=== PATIENT | female | born 1940 | race Caucasian/White ===

== ENCOUNTER 2020-03-29 05:28 | Inpatient (IN) | payer MEDICARE, BC ==
[2020-03-01 11:29] LABS: ABSOLUTE EOSINOPHILS # (AUTO) 0.1 10^3/uL (0.0-0.6); ABSOLUTE LYMPHOCYTES (AUTO) 1.6 10^3/uL (0.5-4.7); ABSOLUTE MONOCYTES (AUTO) 0.4 10^3/uL (0.1-1.4); ABSOLUTE NEUT (AUTO) 3.7 10^3/uL (1.7-8.2); BASOPHILS % (AUTO) 0.6 % (0-2); EOSINOPHILS % (AUTO) 2.4 % (0-6); HEMATOCRIT 40.6 % (36.0-47.0); HEMOGLOBIN 13.4 g/dL (12.0-15.5); LYMPHOCYTES % (AUTO) 27.2 % (13-45); MEAN CORPUSCULAR HEMOGLOBIN 29.7 pg (27.0-33.4); MEAN CORPUSCULAR VOLUME 90 fl (80-97); MONOCYTES % (AUTO) 7.2 % (3-13); PLATELET COUNT 153 10^3/uL (150-450); RED BLOOD COUNT 4.51 10^6/uL (3.72-5.28); RED CELL DISTRIBUTION WIDTH 14.4 % (11.5-14.0); SEGMENTED NEUTROPHILS % (AUTO) 62.6 % (42-78); TOTAL CELLS COUNTED % (AUTO) 100 %; WHITE BLOOD COUNT 5.9 10^3/uL (4.0-10.5)
[2020-03-01 11:45] LABS: APPEARANCE,URINE CLEAR; BILIRUBIN,URINE NEGATIVE (NEGATIVE); COLOR,URINE YELLOW; GLUCOSE, URINE NEGATIVE (NEGATIVE); KETONES,URINE NEGATIVE (NEGATIVE); LEUKOCYTE ESTERASE,URINE TRACE (NEGATIVE); NITRITE,URINE NEGATIVE (NEGATIVE); PROTEIN,URINE NEGATIVE (NEGATIVE); URINE SPECIFIC GRAVITY 1.012; UROBILINOGEN,URINE NEGATIVE mg/dL (<2.0)
--- NOTE | 2020-03-01 11:48 | RADIOLOGY REPORT (SQ) ---
EXAM DESCRIPTION: CHEST 2 VIEWS IMAGES COMPLETED DATE/TIME: 03/01/2020 11:38 am REASON FOR STUDY: PRE OP TESTING COMPARISON: None. EXAM PARAMETERS: NUMBER OF VIEWS: two views TECHNIQUE: Digital Frontal and Lateral radiographic views of the chest acquired. RADIATION DOSE: NA LIMITATIONS: none FINDINGS: LUNGS AND PLEURA: No opacities, masses or pneumothorax. No pleural effusion. MEDIASTINUM AND HILAR STRUCTURES: No masses or contour abnormalities. HEART AND VASCULAR STRUCTURES: Heart normal size. No evidence for failure. BONES: No acute findings. HARDWARE: None in the chest. OTHER: No other significant finding. IMPRESSION: NO ACUTE RADIOGRAPHIC FINDING IN THE CHEST. TECHNICAL DOCUMENTATION: JOB ID: [id number] 2010 [employer]- All Rights Reserved Reading location - IP/workstation name: [email or web address]
[2020-03-01 11:53] LABS: ANION GAP 10 (5-19); BLOOD UREA NITROGEN 18 mg/dL (7-20); CALCIUM 9.4 mg/dL (8.4-10.2); CARBON DIOXIDE 27 mmol/L (22-30); CHLORIDE 104 mmol/L (98-107); GLUCOSE 107 mg/dL (75-110)
[2020-03-01 12:01] LABS: ALCOHOL < 10 mg/dL (NONE DETECTED)
[2020-03-01 12:06] LABS: URINE AMPHETAMINES SCREEN NEGATIVE; URINE BARBITURATES SCREEN NEGATIVE; URINE BENZODIAZEPINES SCREEN NEGATIVE; URINE COCAINE SCREEN NEGATIVE; URINE MARIJUANA (THC) SCREEN NEGATIVE; URINE METHADONE SCREEN NEGATIVE; URINE PHENCYCLIDINE SCREEN NEGATIVE
--- NOTE | 2020-03-01 15:24 | EKG REPORT ---
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
[~2020-03-29 05:28] MED LIST: CEFAZOLIN 2 GM/D5W RTU 2 GM/50 ML RTUPB IV PRN; LACTATED RINGERS 1000 ML IV PRN; LIDOCAINE 0.5% INJ-PF (5 MG/ML) 50 ML SDV SUBCUT PRN
[2020-03-29] MEDS ORDERED: CEFAZOLIN 2 GM/D5W RTU 2 GM/50 ML RTUPB IV ONE (05:39)
[2020-03-29 06:24] LABS: POTASSIUM 4.1 mmol/L (3.6-5.0)
[2020-03-29] MEDS ORDERED: LIDOCAINE 2% INJ (20 MG/ML) 20 ML MDV ONE (06:47)
[2020-03-29] MEDS ORDERED: FENTANYL CITRATE INJ/PF 250 MCG/5 ML AMPULE ONE (06:49)
[2020-03-29] MEDS ORDERED: KETAMINE HCL INJ 500 MG/10 ML VIAL ONE (06:49)
[2020-03-29] MEDS ORDERED: PROPOFOL INJ 200 MG/20 ML VIAL IV ONE ×3 (06:50→11:48)
[2020-03-29] MEDS ORDERED: MIDAZOLAM 2 MG/2 ML INJ ONE (06:50)
[2020-03-29] MEDS ORDERED: ONDANSETRON HCL INJ/PF 4 MG/2 ML SDV ONE ×2 (06:50→16:20)
[2020-03-29] MEDS ORDERED: DEXAMETHASONE SOD PHOSPHATE INJ 4 MG/1 ML VIAL ONE (06:50)
[2020-03-29] MEDS ORDERED: DIPHENHYDRAMINE HCL 25 MG CAPSULE PO PRN (07:01)
[2020-03-29] MEDS ORDERED: ACETAMINOPHEN 325 MG TABLET PO PRN (07:01)
[2020-03-29] MEDS ORDERED: MAGNESIUM HYDROXIDE SUSP 30 ML UDCUP PO PRN (07:01)
[2020-03-29] MEDS ORDERED: DIPHENHYDRAMINE HCL 50 MG/ML VIAL IV PRN ×2 (07:01→08:33)
[2020-03-29] MEDS ORDERED: DIAZEPAM 5 MG TABLET PO PRN (07:01)
[2020-03-29] MEDS ORDERED: METHOCARBAMOL 750 MG TABLET PO PRN (07:01)
[2020-03-29] MEDS ORDERED: RINGERS SOLUTION,LACTATED 1,000 ML IV PRN (07:01)
[2020-03-29] MEDS ORDERED: BUPIVACAINE HCL 0.5 % INJ/PF 30 ML SDV ONE (07:04)
[2020-03-29] MEDS ORDERED: HEPARIN SOD (PORCINE) 1,000 UNIT/ML 10 ML VIAL ONE (07:04)
[2020-03-29] MEDS ORDERED: BUPIVACAINE INJ/PF LIPOSOME/PF 266 MG/20 ML SDV ONE (07:05)
[2020-03-29] MEDS ORDERED: MINERAL OIL (STERILE) 10 ML VIAL ONE ×2 (07:05→09:40)
[2020-03-29] MEDS ORDERED: BACITRACIN INJ 50,000 UNIT VIAL ONE (07:05)
[2020-03-29] MEDS ORDERED: EPHEDRINE SULFATE INJ 50 MG/1 ML AMPULE ONE (07:15)
[2020-03-29] MEDS ORDERED: CHLORDIAZEPOXIDE HCL 10 MG PO PRN (07:19)
[2020-03-29] MEDS ORDERED: TRAMADOL HCL 50 MG TABLET PO PRN (07:19)
[2020-03-29] MEDS ORDERED: LANSOPRAZOLE 30 MG PO SCH (07:30)
[2020-03-29] MEDS ORDERED: MORPHINE SULFATE 10 MG/ML INJ IV PRN (08:33)
[2020-03-29] MEDS ORDERED: PROMETHAZINE HCL INJ 25 MG/1 ML VIAL IV PRN ×2 (08:33→16:17)
[2020-03-29] MEDS ORDERED: FENTANYL CITRATE INJ/PF 100 MCG/2 ML AMPUL IV PRN ×3 (08:33)
[2020-03-29] MEDS ORDERED: MECOBALAMIN 1000 MCG PO SCH (10:00)
[2020-03-29] MEDS ORDERED: (PENDING PHARMACY ID) (Metformin Hcl [Metformin Hcl Er] 500 MG Tab.Er.24h) PO SCH (10:00)
[2020-03-29] MEDS ORDERED: PYRIDOXINE HCL 100 MG PO SCH (10:00)
[2020-03-29] MEDS ORDERED: LEVOTHYROXINE SODIUM 125 MCG PO SCH (10:00)
[2020-03-29] MEDS ORDERED: MAGNESIUM OXIDE 400 MG PO SCH (10:00)
[2020-03-29] MEDS ORDERED: TRIAMTERENE 50 MG PO SCH (10:00)
[2020-03-29] MEDS ORDERED: CEFAZOLIN INJ 1 GM VIAL ONE (11:36)
[2020-03-29] MEDS ORDERED: METHOCARBAMOL INJ/PF 1000 MG/10 ML SDV ONE (12:15)
--- NOTE | 2020-03-29 12:38 | Operative Report ---
Operative Report DATE OF SURGERY: 03/29/20 PREOPERATIVE DIAGNOSIS: L3-4 and L4-5 and L5-S1 spondylolisthesis. L3-4 L4-5 a nd L5-S1 instability. L3-4 L4-5 and L5-S1 stenosis and degenerative disc disease and back pain and radiculitis POSTOPERATIVE DIAGNOSIS: L3-4 and L4-5 and L5-S1 spondylolisthesis. L3-4 L4-5 and L5-S1 instability. L3-4 L4-5 and L5-S1 stenosis and degenerative disc disease and back pain and radiculitis. Status post L3-4 and L4-5 and L5-S1 anterior lateral interbody fusion with interbody spacers as well as L3-4 and L4- 5 and L5-S1 posterior fusion and instrumentation robotically assisted left-sided iliac crest aspiration through a separate incision. OPERATION: L3-4 and L4-5 and L5-S1 anterior lateral interbody fusion with interbody spacers as well as L3-4 and L4-5 and L5-S1 posterior fusion and instrumentation robotically assisted left-sided iliac crest aspiration through a separate incision. SURGEON: KAREN BAPTISTE 1ST INDUSTRIAL HYGIENE ENGINEER: DIOMEDES DAMIAN ANESTHESIA: GA TISSUE REMOVED OR ALTERED: Where utilized is [employer] screws at L3 4.5 x 45 mm screws x2 at L4 5.5 x 45 mm screws x2 at L5 6.5 x 40 mm screws x2 at S1 6.5 x 40 mm screws x2 100 mm davion on the left and 90 mm davion on the right as well as spineology 20 mm spacer at L5-S1 22 mm spacers at L3-4 and L4-5 with with DBM cortical cancellous mix of allograft with the bone marrow aspirate and interbody spacers COMPLICATIONS: None ESTIMATED BLOOD LOSS: 250 cc blood loss but also patient is given back 150 cc of Cell Saver PROCEDURE: Patient is brought into the room placed under general anesthesia received 2 g of Ancef within 1 hour of cut time was placed on the Brayan table medial epicon dyles and axillary areas are well-padded. Neuro monitoring leads for SSEP and cranial motor testing are placed on the patient as well as a Harp catheter is placed preoperatively. After appropriate surgical timeout the [employer] robot is utilized and on the right posterior superior iliac spine a pin is placed and attached to the robot. After obtaining registration imaging in the AP and oblique position and verification. The appropriate length screws are inserted using portal incisions on the right and the left at L3 and L4 and L5 and S1 bilaterally. Left iliac crest is aspirated at 2 different sites total of 50 cc of bone marrow aspirate are obtained and concentrated to be used an interbody spacer with the allograft. Attention was then paid to the left sided anterior lateral portal for entry into the disc space which is carried out under navigation guidance upon verification also with x-rays and then stimulation thresholds greater than 35 mA. Upon inserting the portal into the disc space at L3-4 and L4-5 and L5-S1 fluoroscopy was used to verify the position as it did also to verify the screws position. Endplate radha and curettes and brushes are used to carry out a complete discectomy then the verify balloon is inserted to verify good contact with the endplates. Incite cortical fibers/demineralized bone matrix with bone marrow aspirate concentrate are placed anterior in the disc space then the appropriate size mesh spacer is introduced into the interbody. The mesh spacer is soaked in bone marrow aspirate concentrate and is filled with bone graft showing good correction and good containment within the disc space at L3-4 and L4-5 and L5- S1. Upon neuro monitoring testing and cranial motor testing found to be stable then the portal is removed anterior laterally and attention is then paid to the placement of the rods upon using the caliper device the appropriate length rods were determined to be 40 mm rods on the right and on the left those are passed d own and locked into position and final tightened. Then the tabs are removed and the portals are irrigated with copious amounts of irrigation and the posterior superior iliac spine pin connected to the robot is removed as well and the deep and superficial tissues were infiltrated with 1.3% Exparel 20 cc mixed with 20 cc of 0.5% bupivacaine plain. The portals are closed using 2-0 Vicryl and then Dermabond and Steri-Strips then 4 x 4's were used to cover the wounds on the right and the left and dressed with coverall tape. Please note that this procedure could not be done without the assistance of Shyam Quiñonez working to assist with the placement of the screws positioning of the robot carrying out the aspiration through the left side iliac crest aspiration please also note that the iliac crest aspiration is carried out on the left side through a separate incision. Shyam Damian was instrumental throughout this whole process and I could not have done this procedure without his assistance as mentioned above.
[2020-03-29] MEDS ORDERED: MORPHINE SULFATE 10 MG/ML INJ ONE (12:44)
[2020-03-29] MEDS: MORPHINE SULFATE 10 MG/ML INJ IV PRN ×3 (12:46→20:40)
[2020-03-29] MEDS ORDERED: CEFAZOLIN 2 GM/D5W RTU 2 GM/50 ML RTUPB IV SCH (14:00)
[2020-03-29] MEDS: LOSARTAN POTASSIUM 50 MG TABLET PO SCH (15:17)
[2020-03-29] MEDS: ESTROGENS,CONJUGATED 0.3 MG TABLET PO SCH (15:17)
[2020-03-29] MEDS: FAMOTIDINE 20 MG TABLET PO SCH ×2 (15:17→17:07)
[2020-03-29] MEDS: SENNOSIDES/DOCUSATE 8.6-50 MG 1 EACH TABLET PO SCH ×2 (15:32→17:07)
[2020-03-29] MEDS: METOPROLOL SUCCINATE 25 MG TAB.SR.24H PO SCH (15:32)
[2020-03-29] MEDS: SIMVASTATIN 40 MG TABLET PO SCH (15:32)
[2020-03-29] MEDS: ASPIRIN 81 MG TABLET, ENT COATED PO SCH (15:32)
--- NOTE | 2020-03-29 16:09 | RADIOLOGY REPORT (SQ) ---
EXAM DESCRIPTION: L SPINE 2 VIEWS; NO CHG FLUORO IMAGES COMPLETED DATE/TIME: 03/29/2020 3:25 pm REASON FOR STUDY: LUMBAR FUSION MULTIPLE LEVELS ASSISTED WITH FLUORO IN OR M43.10 SPONDYLOLISTHESIS , SITE UNSPECIFIED M48.061 SPINAL STENOSIS, LUMBAR REGION WITHOUT NEUROGENIC CL M51.36 OTHER INTERV ERTEBRAL DISC DEGENERATION, LUMBAR REGION COMPARISON: None. FLUOROSCOPY TIME: 4 minutes 5 images saved to PACS. TECHNIQUE: Intra-operative images acquired during surgical procedure to evaluate progress. NUMBER OF IMAGES: 5 LIMITATIONS: None. FINDINGS: Images from fluoro document placement of posterior rods from L3-S1 with screws through the pedicles. IMPRESSION: Multilevel lumbar fusion. Refer to operative note for further information. COMMENT: Quality ID [id number]: Final reports for procedures using fluoroscopy that document radiation exp osure indices, or exposure time and number of fluorographic images (if radiation exposure indices are not available) Please consult full operative report of the attending physician for description of the procedure. TECHNICAL DOCUMENTATION: JOB ID: [id number] 2010 [employer]- All Rights Reserved Reading location - IP/workstation name: [email or web address]
--- NOTE | 2020-03-29 16:09 | RADIOLOGY REPORT (SQ) ---
EXAM DESCRIPTION: L SPINE 2 VIEWS; NO CHG FLUORO IMAGES COMPLETED DATE/TIME: 03/29/2020 3:25 pm REASON FOR STUDY: LUMBAR FUSION MULTIPLE LEVELS ASSISTED WITH FLUORO IN OR M43.10 SPONDYLOLISTHESIS , SITE UNSPECIFIED M48.061 SPINAL STENOSIS, LUMBAR REGION WITHOUT NEUROGENIC CL M51.36 OTHER INTERV ERTEBRAL DISC DEGENERATION, LUMBAR REGION COMPARISON: None. FLUOROSCOPY TIME: 4 minutes 5 images saved to PACS. TECHNIQUE: Intra-operative images acquired during surgical procedure to evaluate progress. NUMBER OF IMAGES: 5 LIMITATIONS: None. FINDINGS: Images from fluoro document placement of posterior rods from L3-S1 with screws through the pedicles. IMPRESSION: Multilevel lumbar fusion. Refer to operative note for further information. COMMENT: Quality ID 145: Final reports for procedures using fluoroscopy that document radiation exp osure indices, or exposure time and number of fluorographic images (if radiation exposure indices are not available) Please consult full operative report of the attending physician for description of the procedure. TECHNICAL DOCUMENTATION: JOB ID: [id number] 2010 [employer]- All Rights Reserved Reading location - IP/workstation name: [email or web address]
[2020-03-29] MEDS ORDERED: ONDANSETRON 4 MG TAB.RAPDIS PO PRN (16:16)
[2020-03-29] MEDS ORDERED: ONDANSETRON HCL INJ/PF 4 MG/2 ML SDV IV PRN (16:16)
[2020-03-29] MEDS: METFORMIN HCL 500 MG TABLET PO SCH ×3 (17:07→18:31)
[2020-03-29] MEDS: NYSTATIN TOPICAL POWDER 15 GM TP SCH (17:07)
[2020-03-29] MEDS: OXYCODONE HCL IR 5 MG TABLET PO PRN ×2 (18:31→22:35)
[2020-03-29] MEDS: CEFAZOLIN SODIUM 2 GM in DEXTROSE 5%-WATER 100 ML IV SCH (21:58)
[2020-03-29] MEDS ORDERED: PANTOPRAZOLE SODIUM 40 MG TABLET.DR PO PRN (22:00)
[2020-03-30] MEDS: MORPHINE SULFATE 10 MG/ML INJ IV PRN (04:39)
[2020-03-30] MEDS: LEVOTHYROXINE SODIUM 0.112 MG TABLET PO SCH (05:58)
[2020-03-30] MEDS: CEFAZOLIN SODIUM 2 GM in DEXTROSE 5%-WATER 100 ML IV SCH (05:58)
[2020-03-30] MEDS ORDERED: ACETAMINOPHEN 325 MG TABLET PO ONE (06:00)
[2020-03-30 06:12] LABS: HEMATOCRIT 35.7 % (36.0-47.0); HEMOGLOBIN 11.9 g/dL (12.0-15.5); MEAN CORPUSCULAR HEMOGLOBIN 29.7 pg (27.0-33.4); MEAN CORPUSCULAR HGB CONC 33.4 g/dL (32.0-36.0); MEAN CORPUSCULAR VOLUME 89 fl (80-97); PLATELET COUNT 119 10^3/uL (150-450); RED BLOOD COUNT 4.02 10^6/uL (3.72-5.28); RED CELL DISTRIBUTION WIDTH 14.8 % (11.5-14.0); WHITE BLOOD COUNT 9.6 10^3/uL (4.0-10.5)
[2020-03-30] MEDS: SENNOSIDES/DOCUSATE 8.6-50 MG 1 EACH TABLET PO SCH ×2 (09:18→17:03)
[2020-03-30] MEDS: FAMOTIDINE 20 MG TABLET PO SCH ×2 (09:19→17:04)
[2020-03-30] MEDS: MAGNESIUM OXIDE 400 MG TABLET PO SCH (09:19)
[2020-03-30] MEDS: METFORMIN HCL 500 MG TABLET PO SCH ×2 (09:19→17:04)
[2020-03-30] MEDS: OXYCODONE HCL IR 5 MG TABLET PO PRN ×3 (09:21→21:25)
[2020-03-30] MEDS: ASPIRIN 81 MG TABLET, ENT COATED PO SCH (09:21)
[2020-03-30] MEDS: LOSARTAN POTASSIUM 50 MG TABLET PO SCH (09:24)
[2020-03-30] MEDS: TRIAMTERENE/HYDROCHLOROTHIAZID 75-50 MG TABLET PO SCH (09:24)
[2020-03-30] MEDS: NYSTATIN TOPICAL POWDER 15 GM TP SCH ×2 (09:24→17:04)
[2020-03-30] MEDS: METOPROLOL SUCCINATE 25 MG TAB.SR.24H PO SCH (09:25)
[2020-03-30] MEDS: ESTROGENS,CONJUGATED 0.3 MG TABLET PO SCH (09:25)
[2020-03-30] MEDS: SIMVASTATIN 40 MG TABLET PO SCH (09:25)
[2020-03-30] MEDS ORDERED: CYANOCOBALAMIN (VITAMIN B-12) 1,000 MCG TABLET PO SCH ×2 (10:00→22:00)
[2020-03-30] MEDS ORDERED: PYRIDOXINE HCL 50 MG TABLET PO SCH ×2 (10:00→22:00)
[2020-03-30] MEDS: ACETAMINOPHEN 325 MG TABLET PO PRN (11:32)
[2020-03-30] MEDS ORDERED: SIMVASTATIN 40 MG TABLET PO SCH (22:00)
[2020-03-30] MEDS ORDERED: ESTROGENS,CONJUGATED 0.3 MG TABLET PO SCH (22:00)
[2020-03-31] MEDS: OXYCODONE HCL IR 5 MG TABLET PO PRN (04:28)
[2020-03-31] MEDS ORDERED: BISACODYL 5 MG TABEC PO PRN (05:00)
[2020-03-31] MEDS ORDERED: BISACODYL 10 MG SUPP.RECT PR PRN (05:00)
[2020-03-31] MEDS: LEVOTHYROXINE SODIUM 0.112 MG TABLET PO SCH (05:03)
[2020-03-31] MEDS: ACETAMINOPHEN 325 MG TABLET PO PRN (05:03)
[2020-03-31] MEDS: METFORMIN HCL 500 MG TABLET PO SCH (07:48)
--- NOTE | 2020-03-31 07:59 | PDOC PROGRESS REPORT ---
Subjective Date:: 03/30/20 Subjective:: Patient is laying in bed at time of exam, She reports significant pain, but reports that it is manageable. She is eating and drink and still has a catheter in place. Reason For Visit: M43.10 SPONDYLOLISTHESIS, SITE UNSPECIFIED,M48.061 Physical Exam Vital Signs: Temp Pulse Resp BP Pulse Ox 98.5 F 86 16 112/39 L 95 03/31/20 06:03 03/30/20 23:39 03/30/20 23:39 03/30/20 23:39 03/30/20 23:39 Intake & Output 03/30/20 03/31/20 04/01/20 06:59 06:59 06:59 Intake Total 2451 1595 Output Total 1830 1130 Balance 621 465 Weight 92.1 kg 92.1 kg General appearance: PRESENT: cooperative, mild distress Mouth exam: PRESENT: moist Respiratory exam: PRESENT: unlabored. ABSENT: chest wall tenderness, crackles, rhonchi, stridor Extremities exam: ABSENT: calf tenderness, pedal edema Musculoskeletal exam: PRESENT: tenderness - lumbar spine Additional comments: Dressing is intact and clean. Normal post op swelling and tenderness. Neurological exam: PRESENT: alert, altered, awake Psychiatric exam: ABSENT: agitated, anxious Results Laboratory Results: 03/30/20 05:13 03/29/20 05:47 Impressions: Chest X-Ray 03/01/20 00:00 IMPRESSION: NO ACUTE RADIOGRAPHIC FINDING IN THE CHEST. Fluoroscopy 03/29/20 00:00 IMPRESSION: Multilevel lumbar fusion. Refer to operative note for further information. Lumbar Spine X-Ray 03/29/20 00:00 IMPRESSION: Multilevel lumbar fusion. Refer to operative note for further information. Assessment & Plan - Time Time Spent with patient: Less than 15 minutes - Plan Summary Plan Summary: POD 1 S/P lumbar fusion Catheter to be removed today Progress with PT as tolerated keep dressing intact May D/C when cleared by PT
--- NOTE | 2020-03-31 08:55 | PDOC DISCHARGE SUMMARY ---
General - Admit/Disc Date/PCP Admission Date/Primary Care Provider: 03/29/20 07:02 HANS GONCALVES MD Discharge Date: 03/31/20 - Discharge Diagnosis Final Diagnosis: L3-4 L4-5 L5-S1 spondylolisthesis and instability status post L3-4 L4-5 L5-S1 fusion instrumentation - Assessment Summary: Patient is doing well her dressing is intact she denies any numbness or tingling in lower extremity she does have back pain progressing well with physical therapy will be discharged home to follow-up in the office in 10 to 14 days. - Additional Information Resuscitation Status: Full Code Discharge Diet: As Tolerated Discharge Activity: Balance Activity w/Rest, No Driving, No Lifting/Push/Pulling Referrals: KAREN BAPTISTE MD [ASSOCIATE] - 04/11/20 1:30 pm (AT [facility]) Home Medications: Alendronate Sodium 70 mg PO SA@1000 PRN 03/01/20 Aspirin [Aspir-Low] 81 mg PO DAILY 03/01/20 Estrogens,Conjugated [Premarin 0.3 Mg Tablet] 0.3 mg PO DAILY 03/01/20 Losartan Potassium 50 mg PO DAILY 03/01/20 Magnesium Oxide 400 mg PO DAILY 03/01/20 Metformin HCl [Metformin HCl ER] 500 mg PO DAILY 03/01/20 Metoprolol Succinate [Toprol Xl 25 mg Tab.sr] 25 mg PO DAILY 03/01/20 Simvastatin 40 mg PO QHS 03/01/20 Tramadol HCl [Ultram] 50 mg PO BIDP PRN 03/01/20 Vitamin E (Dl, Acetate) [Vitamin E 400 Unit Capsule] 400 unit PO QPM 03/01/20 Celecoxib [Celebrex 200 mg Capsule] 200 mg PO DAILY 03/24/20 Chlordiazepoxide HCl 10 mg PO HSP PRN 03/24/20 Lansoprazole [Prevacid 30 Mg Odt Tablet] 30 mg PO QHS 03/24/20 Multivitamin 1 each PO DAILY 03/24/20 Pyridoxine HCl (Vitamin B6) [Vitamin B-6] 100 mg PO QHS 03/24/20 Cyanocobalamin (Vitamin B-12) [Vitamin B-12 1000 Mcg Tablet] 1,000 mcg PO QPM 03/29/20 Docusate Sodium [Colace 100 mg Capsule] 200 mg PO DAILY 03/29/20 Docusate Sodium [Colace 100 mg Capsule] 300 mg PO QHS 03/29/20 Levothyroxine Sodium [Synthroid 0.112 mg Tablet] 112 mcg PO Q6AM 03/29/20 Triamterene/Hydrochlorothiazid [Triamterene-Hctz 75-50 mg Tab] 0.5 tab PO DAILY 03/29/20 History of Present Illiness History of Present Illness: ALLAN PERSAUD is a 80 year old female Physical Exam Vital Signs: Temp Pulse Resp BP Pulse Ox 98.0 F 80 16 108/72 94 03/31/20 08:20 03/31/20 07:49 03/31/20 07:49 03/31/20 07:49 03/31/20 07:49 Intake & Output 03/30/20 03/31/20 04/01/20 06:59 06:59 06:59 Intake Total 2451 1595 Output Total 1830 1130 Balance 621 465 Weight 92.1 kg 92.1 kg Results Laboratory Results: WBC 9.6 10^3/uL (4.0-10.5) 03/30/20 05:13 RBC 4.02 10^6/uL (3.72-5.28) 03/30/20 05:13 Hgb 11.9 g/dL (12.0-15.5) L 03/30/20 05:13 Hct 35.7 % (36.0-47.0) L 03/30/20 05:13 MCV 89 fl (80-97) 03/30/20 05:13 MCH 29.7 pg (27.0-33.4) 03/30/20 05:13 MCHC 33.4 g/dL (32.0-36.0) 03/30/20 05:13 RDW 14.8 % (11.5-14.0) H 03/30/20 05:13 Plt Count 119 10^3/uL (150-450) L 03/30/20 05:13 Lymph % (Auto) 27.2 % (13-45) 03/01/20 10:50 [place] % (Auto) 7.2 % (3-13) 03/01/20 10:50 Eos % (Auto) 2.4 % (0-6) 03/01/20 10:50 Baso % (Auto) 0.6 % (0-2) 03/01/20 10:50 Absolute Neuts (auto) 3.7 10^3/uL (1.7-8.2) 03/01/20 10:50 Absolute Lymphs (auto) 1.6 10^3/uL (0.5-4.7) 03/01/20 10:50 Absolute Monos (auto) 0.4 10^3/uL (0.1-1.4) 03/01/20 10:50 Absolute Eos (auto) 0.1 10^3/uL (0.0-0.6) 03/01/20 10:50 Absolute Basos (auto) 0.0 10^3/uL (0.0-0.2) 03/01/20 10:50 Seg Neutrophils % 62.6 % (42-78) 03/01/20 10:50 Sodium 140.5 mmol/L (137-145) 03/01/20 10:50 Potassium 4.1 mmol/L (3.6-5.0) 03/29/20 05:47 Chloride 104 mmol/L (98-107) 03/01/20 10:50 Carbon Dioxide 27 mmol/L (22-30) 03/01/20 10:50 Anion Gap 10 (5-19) 03/01/20 10:50 BUN 18 mg/dL (7-20) 03/01/20 10:50 Creatinine 0.84 mg/dL (0.52-1.25) 03/01/20 10:50 Est GFR ( Amer) > 60 (>60) 03/01/20 10:50 Est GFR (MDRD) Non-Af > 60 (>60) 03/01/20 10:50 Glucose 114 mg/dL (75-110) H 03/29/20 05:47 POC Glucose 209 mg/dL (70-110) H 03/29/20 17:35 Hemoglobin A1c % 5.9 % (4.7-6.0) 03/29/20 05:47 Calcium 9.4 mg/dL (8.4-10.2) 03/01/20 10:50 Urine Color YELLOW 03/01/20 09:21 Urine Appearance CLEAR 03/01/20 09:21 Urine pH 7.0 (5.0-9.0) 03/01/20 09:21 Ur Specific [place] 1.012 03/01/20 09:21 Urine Protein NEGATIVE mg/dL (NEGATIVE) 03/01/20 09:21 Urine Glucose (UA) NEGATIVE mg/dL (NEGATIVE) 03/01/20 09:21 Urine Ketones NEGATIVE mg/dL (NEGATIVE) 03/01/20 09:21 Urine Blood NEGATIVE (NEGATIVE) 03/01/20 09:21 Urine Nitrite NEGATIVE (NEGATIVE) 03/01/20 09:21 Urine Bilirubin NEGATIVE (NEGATIVE) 03/01/20 09:21 Urine Urobilinogen NEGATIVE mg/dL (<2.0) 03/01/20 09:21 Ur Leukocyte Esterase TRACE (NEGATIVE) H 03/01/20 09:21 Urine WBC (Auto) 7 /HPF 03/01/20 09:21 Urine RBC (Auto) 1 /HPF 03/01/20 09:21 Urine Bacteria (Auto) TRACE /HPF 03/01/20 09:21 Squamous Epi Cells Auto 4 /HPF 03/01/20 09:21 Urine Mucus (Auto) RARE /LPF 03/01/20 09:21 Urine Ascorbic Acid NEGATIVE (NEGATIVE) 03/01/20 09:21 Urine Opiates Screen NEGATIVE 03/01/20 09:21 Urine Methadone Screen NEGATIVE 03/01/20 09:21 Ur Barbiturates Screen NEGATIVE 03/01/20 09:21 Ur Phencyclidine Scrn NEGATIVE 03/01/20 09:21 Ur Amphetamines Screen NEGATIVE 03/01/20 09:21 U Benzodiazepines Scrn NEGATIVE 03/01/20 09:21 Urine Cocaine Screen NEGATIVE 03/01/20 09:21 U Marijuana (THC) Screen NEGATIVE 03/01/20 09:21 Serum Alcohol < 10 mg/dL (NONE DETECTED) 03/01/20 10:50 COVID-19 Source See comment 03/24/20 10:20 COVID-19 (LEXIE) Not Detected (Not Detect) 03/24/20 10:20 Influenza A (RT-PCR) NEGATIVE (NEGATIVE) 03/30/20 06:39 Influenza B (RT-PCR) NEGATIVE (NEGATIVE) 03/30/20 06:39 RSV (RT-PCR) NEGATIVE (NEGATIVE) 03/30/20 06:39 SARS-CoV-2 Rap RNA(RT-PCR) NEGATIVE (NEGATIVE) 03/30/20 06:39 Blood Type B NEGATIVE 03/29/20 07:11 Antibody Screen NEGATIVE 03/29/20 07:11 Impressions: Chest X-Ray 03/01/20 00:00 IMPRESSION: NO ACUTE RADIOGRAPHIC FINDING IN THE CHEST. Fluoroscopy 03/29/20 00:00 IMPRESSION: Multilevel lumbar fusion. Refer to operative note for further information. Lumbar Spine X-Ray 03/29/20 00:00
[2020-03-31 09:03] VITALS: BP 108/48
[2020-03-31] MEDS: ASPIRIN 81 MG TABLET, ENT COATED PO SCH (09:09)
[2020-03-31] MEDS: LOSARTAN POTASSIUM 50 MG TABLET PO SCH (09:09)
[2020-03-31] MEDS: SENNOSIDES/DOCUSATE 8.6-50 MG 1 EACH TABLET PO SCH (09:10)
[2020-03-31] MEDS: TRIAMTERENE/HYDROCHLOROTHIAZID 75-50 MG TABLET PO SCH (09:10)
[2020-03-31] MEDS: MAGNESIUM OXIDE 400 MG TABLET PO SCH (09:10)
[2020-03-31] MEDS: FAMOTIDINE 20 MG TABLET PO SCH (09:11)
[2020-03-31] MEDS: NYSTATIN TOPICAL POWDER 15 GM TP SCH (09:11)
[2020-03-31] MEDS: METOPROLOL SUCCINATE 25 MG TAB.SR.24H PO SCH (09:12)
== END 2020-03-31 10:05 | disposition home or self-care (01) | DRG 455 ==
LOC: OROUT 05:28 → 4N 07:02 → OROUT 07:02 → EDSTATUS 07:30 → 4N 14:12 → OROUT 03-30 03:37 → 4N 03-30 03:38 → UNDOADMIN 03-30 03:38
PROVIDERS: ADMIT Orthopaedic Surgery; ATTEND Orthopaedic Surgery
PROC: 0SG1371 Fusion of 2 or more Lumbar Vertebral Joints with Autologous Tissue Substitute, Posterior Approach, Posterior Column, Percutaneous Approach (ICD-10-PCS; 2020-03-29)
PROC: 0SG33A0 Fusion of Lumbosacral Joint with Interbody Fusion Device, Anterior Approach, Anterior Column, Percutaneous Approach (ICD-10-PCS; 2020-03-29)
PROC: 0SG0371 Fusion of Lumbar Vertebral Joint with Autologous Tissue Substitute, Posterior Approach, Posterior Column, Percutaneous Approach (ICD-10-PCS; 2020-03-29)
PROC: 07DR3ZZ Extraction of Iliac Bone Marrow, Percutaneous Approach (ICD-10-PCS; 2020-03-29)
PROC: 8E0W3CZ Robotic Assisted Procedure of Trunk Region, Percutaneous Approach (ICD-10-PCS; 2020-03-29)
PROC: 0SG13A0 Fusion of 2 or more Lumbar Vertebral Joints with Interbody Fusion Device, Anterior Approach, Anterior Column, Percutaneous Approach (ICD-10-PCS; principal; 2020-03-29 07:30)
DX: M43.16 Spondylolisthesis, lumbar region (principal); M48.061 Spinal stenosis, lumbar region without neurogenic claudication; M51.16 Intervertebral disc disorders with radiculopathy, lumbar region; M43.17 Spondylolisthesis, lumbosacral region; Z79.899 Other long term (current) drug therapy
CPT/HCPCS: 00630; 36415; 71046; 72100; 80048; 80307; 81001; 82947; 82962; 83036; 84132; 85025; 85027; 86850; 86900; 86901; 87070; 87635; 93005; 93010; 94799; 0241U; C9290; C9803; J0690; J1100; J1644; J2250; J2270; J2405; J2704; J2800; J3010; J3490; J7060; J7120